=== PATIENT | male | born 1970 | race Caucasian/White ===

== ENCOUNTER → 2021-02-27 | Outpatient (CLI) | payer OTHER ==
--- NOTE | ~2021-02-27 | PFR/MVV ---
[facility] [place] [address] PULMONARY FUNCTION MVV/REPORT Name: JOSHUA SARMIENTO Room #: [facility] [id number] Admission: 02/27/21 Attend Phys: Travis Marin DO Discharge: Date of : 72 Report #: [id number] THIS REPORT FOR: //name// >> SPIROMETRY: (BTPS) Height: in cm Weight: lbs kg Exam Date: PRE-RX POST-RX PRED BEST %PRED BEST %PRED %CHG FVC LITERS . . . . . . FEV1 LITERS . . . . . . FEV1/FVC % . . . . . . BYA10-72% L/Sec . . . . . . PEF L/SEC . . . . . . FEF50/FIF50 UNITLESS . . . . . . MVV L/Min . . . f 1/Min . . . >> LUNG VOLUMES: (BTPS) PRE-RX POST-RX PRED AVG %PRED AVG %PRED %CHG VC Liters . . . . . . TLC Liters . . . . . . RV Liters . . . . . . RV/TLC % . . . . . . FRC PL Liters . . . . . . FRC N2 Liters . . . . . . ERV Liters . . . . . . IC Liters . . . . . . >> DIFFUSION: DLCO ml/Min/mmHg . . . . . . DL Dorian ml/Min/mmHg . . . . . . DLCO/VA ml/Min/mmHg . . . . . . VA Liters . . . . . . COMMENTS: COMMENTS: >> RESISTANCE: [facility] [address] [place] [address] PULMONARY FUNCTION MVV/REPORT Name: JOSHUA SARMIENTO Room #: REG JEROME FatumaDafne#: [id number] Admission: 02/27/21 Attend Phys: Travis Marin DO Discharge: Date of : 72 Report #: [id number] PRE-RX PRED AVG %PRED Raw Total cmH20/L/Sec . . . Raw Insp cmH20/L/Sec . . . Raw Exp cmH20/L/Sec . . . Raw cmH20/L/Sec . . . Gaw L/Sec/cmH20 . . . sRaw cmH20 Sec . . . sGaw l/cmH20 Sec . . . Vtq Liters . . . # = OUTSIDE 95% CONFIDENCE INTERVAL CALIBRATION: PRED: 3.00 ACTUAL: EXP 3.01 INSP 3.02 [facility]- [facility]-- [id number] >> INTERPRETATION/IMPRESSION: SPIROMETRY: FEV1 is 1.53 liters (44% predicted), FVC is 1.75 liters (37%), FEV1/FVC ratio is 88%. Postbronchodilator therapy is significant. FEV1 increased to 2.64 liters (75% predicted), 72% change. FVC increased to 3.60 liters (76% predicted), 106% change. LUNG VOLUMES: Total lung capacity is 3.04 liters (46%). IC to ERV ratio is 1.81 liters to 0.26 liters and increased. Diffusing capacity is 53%. IMPRESSION: Pulmonary function studies are consistent with a severe restrictive airflow defect with a significant response to bronchodilator therapy. Total lung capacity is severely decreased. Diffusing capacity is moderately decreased. By: Geovani Bullock MD /nt
== END ==
LOC: PUL 10:07
PROVIDERS: ATTEND Chiropractor
DX: R06.02 Shortness of breath (principal)